=== PATIENT | male | born 1980 | race Caucasian/White ===

== ENCOUNTER 2016-09-09 13:11 | Emergency (ER) | payer OTHER ==
[2016-09-09] MEDS ORDERED: IBUPROFEN 800 MG TAB PO STA (13:29)
--- NOTE | 2016-09-09 13:37 | ED ---
Lower Extremity Injury HPI - General Source: patient Mode of arrival: wheelchair Limitations: no limitations <César Vincent - Last Filed: 09/09/16 13:37> <Ramesh Andrews - Last Filed: 09/09/16 16:02> - General Chief Complaint: Extremity Injury, Lower Stated Complaint: Ankle Pain - History of Present Illness Initial Comments: Patient is a 36 show male presenting to the emergency department with complaints of right ankle pain. Patient states he was out rollerblading when he fell and inverted his ankle. Onset of injury just prior to arrival to the emergency department. Patient is currently complaining of pain and swelling mostly to the medial malleolus. Patient is rating pain 8 out of 10, described as throbbing, exacerbated with movement, somewhat relieved with rest. Patient states she was unable to ambulate at the scene of injury and is unable to ambulate in the emergency department. Patient denies hearing a snap or pop when injury happened. No history of previous trauma surgeries right lower extremity. Patient denies chills, fevers, nausea, vomiting, shortness of breath , chest pain, abdominal pain, numbness or tingling. No treatment prior to arrival. (César Vincent) - Related Data Home Medications Medication Instructions Recorded Confirmed Multivitamins, Thera [Multivitamin 1 tab PO HS 09/09/16 09/09/16 (formulary)] Previous Rx's Medication Instructions Recorded Hydrocodone/Acetaminophen [[place] 1 each PO Q6HR PRN #30 tab 09/09/16 5-325] Allergies Allergy/AdvReac Type Severity Reaction Status Date / Time No Known Allergies Allergy Verified 09/09/16 13:52 Review of Systems ROS Other: All systems not noted in ROS Statement are negative. <César Vincent - Last Filed: 09/09/16 13:37> ROS Other: All systems not noted in ROS Statement are negative. <Ramesh Andrews - Last Filed: 09/09/16 16:02> ROS Statement: Those systems with pertinent positive or pertinent negative responses have been documented in the HPI. Past Medical History Past Medical History: No Reported History History of Any Multi-Drug Resistant Organisms: None Reported Past Surgical History: No Surgical Hx Reported Past Psychological History: No Psychological Hx Reported Smoking Status: Never smoker Past Alcohol Use History: Occasional Past Drug Use History: None Reported <César Vincent - Last Filed: 09/09/16 13:37> General Exam Limitations: no limitations General appearance: alert, in no apparent distress Head exam: Present: atraumatic, normocephalic, normal inspection Eye exam: Present: normal appearance ENT exam: Present: mucous membranes moist, normal external ear exam Neck exam: Present: normal inspection, full ROM Respiratory exam: Present: normal lung sounds bilaterally. Absent: respiratory distress, wheezes, rales, rhonchi, stridor Cardiovascular Exam: Present: regular rate, normal rhythm, normal heart sounds. Absent: systolic murmur, diastolic murmur, rubs, gallop, clicks GI/Abdominal exam: Present: soft, normal bowel sounds. Absent: distended, tenderness, guarding, rebound, rigid Right Hip exam: Present: normal inspection, full ROM. Absent: tenderness, swelling Upper Leg exam: Present: normal inspection, full ROM. Absent: tenderness, swelling Knee exam: Present: normal inspection, full ROM. Absent: tenderness, swelling Lower Leg exam: Present: normal inspection Ankle exam: Present: tenderness, swelling. Absent: full ROM (Secondary to pain. Swelling and tenderness mostly to medial malleolus.), ecchymosis Foot/Toe exam: Present: normal inspection, full ROM. Absent: tenderness, swelling Neurovascular tendon exam: Present: no vascular compromise, significant pain with passive ROM of distal joint. Absent: abnormal cap refill, motor deficit, sensory deficit, tendon deficit, extremity cold to touch, abnormal 2-point discrimination, foot drop Neurological exam: Present: alert, oriented X3, other (No focal deficits noted) Psychiatric exam: Present: normal affect, normal mood Skin exam: Present: warm, dry, intact, normal color <César Vincent - Last Filed: 09/09/16 13:37> Procedures <César Vincent - Last Filed: 09/09/16 13:37> <Ramesh Andrews - Last Filed: 09/09/16 16:02> - Procedures Initial comment: Procedure; conscious sedation was performed. Permission was obtained after risks and benefits explained. At bedside were the ER doctor, to ER nurses orthopedic PA and community development technician. The patient's vital signs were monitored before during and after procedure. Total length of procedure 26 minutes. Adequate conscious sedation was obtained so that the right ankle fracture dislocation could be reduced by the orthopedic PA. Dr. Andrews (Ramesh Andrews) Medical Decision Making - Radiology Data Radiology results: report reviewed <César Vincent - Last Filed: 09/09/16 13:37> <Ramesh Andrews - Last Filed: 09/09/16 16:02> - Medical Decision Making Decision-making. The patient is here with his . The patient injured his right ankle while rollerblading. X-ray shows a fracture distal fibula with dislocation of the ankle mortise. The radiologist report his lateral malleolus fracture, oblique fracture with partial lateral dislocation of the ankle joint 1 cm lateral displacement of the talus. With soft tissue swelling. Read by Dr. Sahu Patient denies any chronic medical problems. Denies high blood pressure heart disease diabetes cancer stroke or asthma. His only surgeries have been 14 a synovitis and is right hand. Patient denies any ALLERGIES. Family history noncontributory. Examination finds no complaint of any head neck arms knee hip or left leg pain or problems. His pain and pathologies to the right ankle only at this time. Neurovascular status to the foot is intact. No open wound noted. I discussed with the patient conscious sedation with reduction of fracture dislocation and follow-up with orthopedic surgery. Patient agrees. (Ramesh Andrews) - Radiology Data X-ray: Oblique fracture of the distal fibula. 1 cm lateral displacement of the talus. Soft tissue swelling. Impression: Lateral malleolus fracture with a partial lateral dislocation of the ankle joint. (César Vincent) Disposition <César Vincent - Last Filed: 09/09/16 13:37> Time of Disposition: 16:01 <Ramesh Andrews - Last Filed: 09/09/16 16:02> Clinical Impression: Closed fracture dislocation of ankle Disposition: HOME SELF-CARE Condition: Good Instructions: Ankle Fracture (ED), Ankle Dislocation (ED) Prescriptions: Hydrocodone/Acetaminophen [[place] 5-325] 1 each PO Q6HR PRN #30 tab PRN Reason: Pain Referrals: None,Stated [Primary Care Provider] - 1-2 days Ephraim Marina, PAC [PHYSICIAN [facility]] - 1-2 days
[2016-09-09] MEDS ORDERED: HYDROmorphone 1 MG/ML 1 ML SYRINGE IVP STA ×2 (13:48→15:00)
[2016-09-09] MEDS ORDERED: ETOMIDATE 2 MG/ML 10 ML VIAL IVP STA (13:48)
--- NOTE | 2016-09-09 13:48 | XR ---
EXAMINATION TYPE: XR ankle complete RT DATE OF EXAM: 09/09/2016 COMPARISON: NONE HISTORY: Ankle pain TECHNIQUE: 3 views FINDINGS: There is a oblique fracture of the distal fibula. There is 1 cm lateral displacement of the talus. There is soft tissue swelling. IMPRESSION: Lateral malleolus fracture with a partial lateral dislocation of the ankle joint.
[2016-09-09] MEDS ORDERED: SODIUM CHLORIDE 0.9% 1,000 ML IV SCH (14:00)
--- NOTE | 2016-09-09 15:20 | XR ---
EXAMINATION TYPE: XR ankle limited RT DATE OF EXAM: 09/09/2016 COMPARISON: Today HISTORY: Fracture TECHNIQUE: 2 views FINDINGS: 2 views through a cast show anatomic reduction of the distal fibula fracture. Detail is morgan ited by the cast. IMPRESSION: Anatomic reduction. I see no complicating process.
[2016-09-09 16:04] VITALS: BP 124/69; PULSE 64; RESP 16; TEMP 98.7
== END 2016-09-09 16:05 | disposition home or self-care (01) ==
LOC: EC 13:11
DX: S82.61XA Displaced fracture of lateral malleolus of right fibula, initial encounter for closed fracture (principal); Z79.899 Other long term (current) drug therapy; W18.30XA Fall on same level, unspecified, initial encounter; Y93.89 Activity, other specified
CPT/HCPCS: 99283 ×2; 27840 ×2; 96374 ×2; 96375 ×2; 96376 ×2; 96361 ×3; 99152 ×2; 99153 ×2; 73600; 73610; J1170

== ENCOUNTER 2016-09-14 05:58 | Inpatient (IN) | payer OTHER ==
[2016-09-11 16:02] VITALS: BMI 25.9
[~2016-09-14 05:58] MED LIST: DEXAMETHASONE SOD PHOSPHATE 10 MG/ML 1 ML VIAL IV ONE; HYDROmorphone 1 MG/ML 1 ML SYRINGE IVP PRN; LIDOCAINE 1% 20 ML VIAL (10MG/ML) FOR IV START INTRADERMA PRN; ONDANSETRON 4 MG/2 ML VIAL IVP ONE; SCOPOLAMINE 1.5MG/72HR PATCH TRANSDERM ONE; ceFAZolin 2 GM in SODIUM CHLORIDE 0.9% 100 ML IVPB ONE
[2016-09-14] MEDS: LACTATED RINGERS 1,000 ML IV SCH ×3 (06:42→19:48)
[2016-09-14] MEDS ORDERED: MIDAZOLAM 2 MG/2 ML VIAL ONE (07:22)
[2016-09-14] MEDS ORDERED: fentaNYL (PF) 50 MCG/ML 2 ML AMP ONE (07:22)
[2016-09-14] MEDS ORDERED: ePHEDrine 50 MG/ML 1 ML AMP ONE (07:22)
[2016-09-14] MEDS ORDERED: ceFAZolin 1,000 MG in SODIUM CHLORIDE 0.9% 1,000 ML IRRIGATION ONE (07:59)
--- NOTE | 2016-09-14 08:44 | FL ---
EXAMINATION TYPE: FL guidance operating room DATE OF EXAM: 09/14/2016 HISTORY: Flouroscopy time 9 seconds of fluoroscopy provided. IMPRESSION: 1. Fluoroscopy time.
--- NOTE | 2016-09-14 08:45 | XR ---
EXAMINATION TYPE: XR ankle limited RT DATE OF EXAM: 09/14/2016 CLINICAL HISTORY: TECHNIQUE: 2 view submitted. COMPARISON: 09/09/2016 FINDINGS: Surgical change appears in near-anatomic alignment. IMPRESSION: Intraoperative image
[2016-09-14] MEDS ORDERED: HYDROmorphone 1 MG/ML 1 ML SYRINGE IVP PRN ×3 (08:58)
[2016-09-14] MEDS ORDERED: METOCLOPRAMIDE 5 MG/ML 2 ML VIAL IVP PRN (08:58)
[2016-09-14] MEDS ORDERED: TEMAZEPAM 15 MG CAP PO PRN (08:58)
[2016-09-14] MEDS ORDERED: SENNOSIDES-DOCUSATE SODIUM 1 EACH TAB PO PRN (08:58)
[2016-09-14] MEDS ORDERED: HYDROcodone/APAP 5-325MG 1 EACH TAB PO PRN (08:58)
[2016-09-14] MEDS ORDERED: diphenhydrAMINE 25 MG CAP PO PRN (08:58)
[2016-09-14] MEDS ORDERED: LACTATED RINGERS 1,000 ML IV ONE (09:19)
--- NOTE | 2016-09-14 09:30 | XR ---
EXAMINATION TYPE: XR ankle limited RT DATE OF EXAM: 09/14/2016 COMPARISON: NONE TECHNIQUE: Two views submitted HISTORY: Post op FINDINGS: There is postsurgical change in near anatomic alignment. There is soft tissue edema and emphysema. IMPRESSION: 1. Postoperative change. Appears in near-anatomic alignment
[2016-09-14 10:50] LABS: Basophils % (A) 0 %; CH 31.3; CHCM 33.9; Eosinophils % (A) 0 %; HCT 43.7 % (39.0-53.0); HDW 2.46; HGB 14.1 gm/dL (13.0-17.5); Luc # (Auto) 0.05; Luc % (Auto) 1; Lymphocytes # (A) 0.5 k/uL (1.0-4.8); Lymphocytes % (A) 8 %; MCH 29.9 pg (25.0-35.0); MCHC 32.3 g/dL (31.0-37.0); MCV 92.6 fL (80.0-100.0); Mean Platelet Volume 8.2; Monocytes # (A) 0.1 k/uL (0-1.0); Monocytes % (A) 1 %; Neutrophils # (A) 5.9 k/uL (1.3-7.7); Neutrophils % (A) 89 %; RBC 4.72 m/uL (4.30-5.90); RDW 13.4 % (11.5-15.5); WBC 6.6 k/uL (3.8-10.6)
--- NOTE | 2016-09-14 12:34 | OP ---
DATE OF SERVICE: 09/14/2016 SURGEON: STORMY OKEEFE DO WE[facility] THINNER: PREOPERATIVE DIAGNOSIS: Fracture subluxation of the right ankle. POSTOPERATIVE DIAGNOSIS: Displaced fracture subluxation of the distal right fibula and deltoid ligament. OPERATION: Open reduction and internal fixation of the displaced of the distal right fibula and tear of the medical deltoid ligament. ANESTHESIA: ESTIMATED BLOOD LOSS: SPECIMENS REMOVED: COMPLICATIONS: OPERATIVE FINDINGS: DESCRIPTION OF PROCEDURE: Patient taken to the operative suite, placed in supine position. General inhalation anesthesia from the Department of Anesthesiology. A Betadine prep is carried out on the foot and ankle and sterile drapes applied in the usual manner. A tourniquet was inflated to 250 mmHg. A lateral incision was made over the fibula in usual fashion. The fracture is reduced and held in position with a lobster clamp. The plate is secured along the distal lateral fibula fracture stabilizing the ankle. No evidence of tibial and fibular instability as this time. X ray was obtained showing reduction and anatomic position and alignment. An incision was made over the medial malleolus and through subcutaneous tissue. Torn deltoid ligament was identified and repaired with 1 Vicryl suturethrough the hole in the medial malleolus. X-rays are obtained and reviewed. The medial wound was approximated with 2-0 Vicryl suture and skin clamps. The lateral wound approximated with 2-0 Vicryl suture. Subcutaneous tissues and skin secured with skin clamps. Betadine, Adaptic solution were applied. The ankle was secured in position with OCL splint. Patient was transferred to recovery room in satisfactory condition. GROSS PATHOLOGY: There is a fracture, subluxation of the right ankle with deltoid ligament tear. [id number]
[2016-09-14] MEDS: ceFAZolin 2 GM in SODIUM CHLORIDE 0.9% 100 ML IVPB SCH ×2 (15:59→23:25)
[2016-09-14] MEDS ORDERED: MORPHINE SULFATE 4 MG/ML SYRINGE IVP PRN ×2 (16:56→20:09)
[2016-09-14] MEDS ORDERED: diphenhydrAMINE 50 MG/ML 1 ML VIAL IVP PRN (16:56)
[2016-09-14] MEDS ORDERED: NALOXONE 0.4 MG/ML 1 ML VIAL IV PRN (16:56)
[2016-09-14] MEDS ORDERED: ONDANSETRON 4 MG/2 ML VIAL IVP PRN (16:56)
[2016-09-14] MEDS: ASPIRIN 325 MG TAB PO SCH (19:48)
[2016-09-14 19:53] VITALS: RESP 16
[2016-09-15] MEDS: LACTATED RINGERS 1,000 ML IV SCH ×2 (01:31→01:32)
[2016-09-15] MEDS: HYDROcodone/APAP 5-325MG 1 EACH TAB PO PRN ×2 (01:32→10:40)
[2016-09-15] MEDS: hydrOXYzine PAMOATE 25 MG CAP PO PRN ×2 (01:32→10:41)
[2016-09-15 07:53] VITALS: BP 141/78; PULSE 93; TEMP 98.2
[2016-09-15] MEDS: ASPIRIN 325 MG TAB PO SCH (10:42)
--- NOTE | 2016-09-15 11:15 | P.DS ---
Providers Date of admission: 09/15/16 08:39 Expected date of discharge: 09/15/16 Attending physician: Tyrone Salcedo Primary care physician: Stated None - Discharge Diagnosis(es) (1) Closed fracture dislocation of ankle Current Visit: No Status: Acute Hospital Course: This is a pleasant 36-year-old male who presented with fracture and dislocation of the right ankle who failed outpatient conservative therapy. He was admitted for open reduction and internal fixation of the displaced distal right fibula and tear of the deltoid ligament. The patient tolerated the procedure well and did well postoperatively. He has been eating and voiding without difficulty. He has been able to ambulate with the assistance of a walker without significant difficulty while remaining nonweightbearing on the right lower extremity. Condition on day of discharge stable. Patient will be discharged home. Patient was cleared preoperatively for surgery. Patient currently denies any nausea, vomiting, fever, or chills. Patient is eating and voiding freely without difficulty. Patient must keep splint and dressing over the right lower extremity clean, dry, and intact. He may elevate and apply ice over the lower extremity for comfort as needed. He should continue to be nonweightbearing on the right lower extremity. Patient should refrain from driving until at least after their first follow-up appointment in the office. He will plan a follow-up with Dr. Salcedo in 10 days for further evaluation. He is given a prescription for [place] 5 mg/325 mg 1 tablet every 6 hours as needed for pain at discharge. He will also be given a prescription to obtain a walker at discharge. Physical Exam on day of discharge: Patient is awake, alert, and oriented 3 Vital signs stable Good chest excursion with deep inspiration and expiration Abdomen soft nontender No signs or symptoms of DVT; no calf pain Splint and Edgar wrap is clean, dry, intact over the right lower extremity Patient is able to wiggle toes of the right lower extremity without difficulty No significant pain with palpation of the right thigh or knee Neurovascular intact right lower extremity Procedures: Open reduction and internal fixation of the displaced distal right fibula and tear of the deltoid ligament Patient Condition at Discharge: Stable Plan - Discharge Summary New Discharge Prescriptions: New HYDROcodone/APAP 5-325MG [[place] 5] 1 each PO Q6HR PRN #45 tab PRN Reason: Pain No Action Hydrocodone/Acetaminophen [[place] 5-325] 1 tab PO Q6HR PRN PRN Reason: Pain Discharge Medication List Hydrocodone/Acetaminophen [[place] 5-325] 1 tab PO Q6HR PRN 09/14/16 [History] HYDROcodone/APAP 5-325MG [[place] 5] 1 each PO Q6HR PRN #45 tab 09/15/16 [Rx] Follow up Appointment(s)/Referral(s): Tyrone Salcedo DO [Doctor of Osteopathic Medicine] - 10 Days Activity/Diet/Wound Care/Special Instructions: 1. non-weightbearing 2. keep splint clean and dry 3. take meds as directed 4. elevate RLE 5. F/U with Dr. Salcedo in office Discharge Disposition: HOME SELF-CARE
== END 2016-09-15 15:14 | disposition home or self-care (01) | DRG 494 ==
LOC: OR 05:58 → 3SUR 08:59 → OR 22:38 → 3SUR 22:38 → OBSVTOIN 09-15 08:39
PROVIDERS: ADMIT Orthopaedic Surgery; ATTEND Orthopaedic Surgery
PROC: 0LQN0ZZ Repair Right Lower Leg Tendon, Open Approach (ICD-10-PCS; 2016-09-14)
PROC: 0QSJ04Z Reposition Right Fibula with Internal Fixation Device, Open Approach (ICD-10-PCS; principal; 2016-09-14 07:30)
DX: S82.841A Displaced bimalleolar fracture of right lower leg, initial encounter for closed fracture (principal); S93.421A Sprain of deltoid ligament of right ankle, initial encounter; V00.111A Fall from in-line roller-skates, initial encounter; Y93.51 Activity, roller skating (inline) and skateboarding
CPT/HCPCS: 85025